=== PATIENT | female | born 1980 | race Caucasian/White ===

== ENCOUNTER 2018-02-09 19:53 | Inpatient (IN) | payer OTHER ==
[~2018-02-09] VITALS: Ht 165.1 cm; Wt 65.0 kg
[2018-02-09] MEDS ORDERED: morphine 4 MG/ML inj SYRINge IV ONE (20:40)
[2018-02-09] MEDS ORDERED: normal saline 1000ML IV soln IVB ONE (20:40)
[2018-02-09] MEDS ORDERED: ondansetron/PF 4mg/2ml inj IV ONE (20:40)
[2018-02-09 21:02] LABS: BASOPHILS % (AUTO) 0.3 % (0-1); EOSINOPHILS # (AUTO) 0.1 X10'3 (0-0.9); EOSINOPHILS % (AUTO) 0.9 % (0-6); HEMATOCRIT 45.6 % (35.0-45.0); HEMOGLOBIN 15.5 g/dl (12.0-16.0); LYMPHOCYTES # (AUTO) 0.9 X10'3 (1.1-4.8); LYMPHOCYTES % (AUTO) 5.9 % (21-51); MEAN CORPUSCULAR HGB CONC 33.9 % (33.0-36.5); MEAN CORPUSCULAR VOLUME 88.6 FL (78-98); MEAN PLATELET VOLUME 7.4 FL (7.4-10.4); MONOCYTES # (AUTO) 0.2 X10'3 (0-0.9); MONOCYTES % (AUTO) 1.1 % (2-12); NEUTROPHILS # (AUTO) 14.6 X10'3 (1.8-7.7); NEUTROPHILS % (AUTO) 91.8 % (42-75); PLATELET COUNT 303 X10'3 (140-440); RED BLOOD COUNT 5.15 X10'6 (4.20-5.60); RED CELL DISTRIBUTION WIDTH 13.2 % (11.5-14.5); WHITE BLOOD COUNT 15.9 X10'3 (4.5-11.0)
[2018-02-09 21:16] LABS: ALANINE AMINOTRANSFERASE 24 U/L (12-78); ALBUMIN 4.3 G/DL (3.4-5.0); ALKALINE PHOSPHATASE 64 IU/L (46-116); ANION GAP 7 (8-16); ASPARTATE AMINO TRANSFERASE 14 U/L (10-37); BILIRUBIN,TOTAL 0.6 MG/DL (0.1-1.0); BLOOD UREA NITROGEN 16 MG/DL (7-18); BUN/CREATININE RATIO 18.4 (6.6-38.0); CALCIUM 9.8 MG/DL (8.5-10.1); CHLORIDE 102 MMOL/L (99-107); CREATININE 0.87 MG/DL (0.40-0.90); GLUCOSE 99 MG/DL (70-104); LIPASE 145 U/L (73-393); SODIUM 138 MMOL/L (135-145); TOTAL CARBON DIOXIDE 28.8 MMOL/L (24-32); TOTAL PROTEIN 8.4 G/DL (6.4-8.2); eGFR 73 ML/MIN
[2018-02-09] MEDS ORDERED: iohexol 300mg/ml 100ml inj. ONE (21:33)
[2018-02-09 22:01] LABS: URINE HCG NEGATIVE (NEG)
[2018-02-09 23:33] LABS: CLARITY,URINE CLEAR (Clear); COLOR,URINE YELLOW (Yellow); GLUCOSE, URINE NEGATIVE (Neg); KETONES,URINE 15 mg/dl (Neg); LEUKOCYTE ESTERASE ,URINE NEGATIVE (Neg); NITRITES, URINE NEGATIVE (Neg); OCCULT BLOOD,URINE NEGATIVE (Neg); PROTEIN,URINE NEGATIVE (Neg); UROBILINOGEN,URINE 0.2 E.U/dL (0.2-1.0)
[2018-02-09 23:35] LABS: UA COLLECTION TYPE CLN CATCH MIDSTREAM
[2018-02-10] VITALS (13 sets, daily range): BP systolic 83–120; BP diastolic 43–78
[2018-02-10] MEDS ORDERED: normal saline 1000ml 1,000 ML IV ONE
[2018-02-10] MEDS ORDERED: piperacillin/tazo 3.375gm/50ml 50 ML IV STA (00:16)
[2018-02-10] MEDS ORDERED: SERT50TA10 PO (00:30)
[2018-02-10] MEDS ORDERED: normal saline 1000ml 1,000 ML IV SCH (00:32)
[2018-02-10] MEDS ORDERED: HYDROmorphone inj. 0.5 MG/0.5 ML DISP.SYRIN IV PRN ×2 (00:35)
[2018-02-10] MEDS ORDERED: ondansetron/PF 4mg/2ml inj IV PRN ×2 (00:35→01:55)
[2018-02-10] MEDS ORDERED: acetaminophen 325mg tablet PO PRN (00:35)
[2018-02-10] MEDS ORDERED: HYDROmorphone 1 mg/ml syringe IV PRN ×2 (00:52)
[2018-02-10] MEDS ORDERED: BUPIVAcaine/PF 2.5mg/ml (0.25%) 10ml vial ONE (00:52)
[2018-02-10] MEDS ORDERED: fentaNYL /PF 50mcg/ml 5ml ampule ONE (01:02)
[2018-02-10] MEDS ORDERED: midazolam 2 mg/2 ml injection ONE (01:02)
[2018-02-10] MEDS ORDERED: propofol inj 20 ML IV ONE (01:04)
[2018-02-10] MEDS ORDERED: LIDOcaine 2% (20mg/ml) 5ml vial ONE (01:04)
[2018-02-10] MEDS ORDERED: rocuronium 10mg/ml inj IV ONE (01:05)
[2018-02-10] MEDS ORDERED: dexamethasone sod phosphate 4mg/ml inj. ONE (01:06)
[2018-02-10] MEDS ORDERED: ondansetron/PF 4mg/2ml inj ONE ×2 (01:12)
[2018-02-10] MEDS ORDERED: sevoflurane 250ml liquid IH ONE (01:12)
[2018-02-10] MEDS ORDERED: ringers solution, lacted 1,000 ML IV SCH (01:52)
[2018-02-10] MEDS ORDERED: meperidine/PF 25mg/ml syringe IV PRN ×2 (01:55)
[2018-02-10] MEDS ORDERED: morphine 4 MG/ML inj SYRINge IV PRN ×3 (01:55→11:50)
[2018-02-10] MEDS ORDERED: proCHLORperazine 10 MG/2 ml inj IV PRN ×4 (01:55→11:57)
[2018-02-10] MEDS ORDERED: neostigmine methylsulfate 1 MG/ML 10ml vial ONE (02:04)
[2018-02-10] MEDS ORDERED: glycopyrrolate 0.2mg/ml inj ONE (02:04)
[2018-02-10] MEDS: meperidine/PF 25mg/ml syringe IV PRN ×3 (02:43→03:35)
[2018-02-10] MEDS ORDERED: piperacillin/tazo 3.375gm/50ml 50 ML IV SCH (08:00)
[2018-02-10] MEDS ORDERED: HYDROcodone/acetaminophen 5mg/325mg tablet PO PRN (08:25)
[2018-02-10 09:07] LABS: BASOPHILS # (AUTO) 0.1 X10'3 (0-0.2); BASOPHILS % (AUTO) 0.6 % (0-1); EOSINOPHILS % (AUTO) 0.4 % (0-6); HEMATOCRIT 44.9 % (35.0-45.0); HEMOGLOBIN 15.1 g/dl (12.0-16.0); LYMPHOCYTES # (AUTO) 0.7 X10'3 (1.1-4.8); LYMPHOCYTES % (AUTO) 5.8 % (21-51); MEAN CORPUSCULAR HGB CONC 33.5 % (33.0-36.5); MEAN CORPUSCULAR VOLUME 89.4 FL (78-98); MEAN PLATELET VOLUME 7.2 FL (7.4-10.4); MONOCYTES # (AUTO) 0.1 X10'3 (0-0.9); NEUTROPHILS % (AUTO) 92.2 % (42-75); PLATELET COUNT 288 X10'3 (140-440); RED BLOOD COUNT 5.02 X10'6 (4.20-5.60); RED CELL DISTRIBUTION WIDTH 13.2 % (11.5-14.5); WHITE BLOOD COUNT 11.9 X10'3 (4.5-11.0)
[2018-02-10 09:20] LABS: ALANINE AMINOTRANSFERASE 19 U/L (12-78); ALBUMIN 3.6 G/DL (3.4-5.0); ALBUMIN/GLOBULIN RATIO 0.9 (1.1-1.5); ALKALINE PHOSPHATASE 64 IU/L (46-116); ANION GAP 7 (8-16); ASPARTATE AMINO TRANSFERASE 15 U/L (10-37); BILIRUBIN,TOTAL 0.6 MG/DL (0.1-1.0); BLOOD UREA NITROGEN 7 MG/DL (7-18); BUN/CREATININE RATIO 9.9 (6.6-38.0); CALCIUM 8.5 MG/DL (8.5-10.1); CHLORIDE 104 MMOL/L (99-107); CREATININE 0.71 MG/DL (0.40-0.90); GLUCOSE 121 MG/DL (70-104); POTASSIUM 4.5 MMOL/L (3.5-5.1); SODIUM 139 MMOL/L (135-145); TOTAL CARBON DIOXIDE 27.8 MMOL/L (24-32); TOTAL PROTEIN 7.5 G/DL (6.4-8.2); eGFR > 90 ML/MIN
[2018-02-10] MEDS: HYDROcodone/acetaminophen 10/325mg tab PO PRN ×2 (12:13→16:40)
[2018-02-10] MEDS ORDERED: gentamicin inj 325 MG in normal saline 100ml IV soln 91.875 ML IV ONE (15:10)
[2018-02-10] MEDS ORDERED: HYDR-3972 PO (16:23)
[2018-02-10] MEDS ORDERED: sertraline 50mg tablet PO SCH (21:00)
== END 2018-02-10 18:00 | disposition home or self-care (01) | DRG 340 ==
LOC: ER 19:54 → ED HOLD 02-10 00:32 → ORTHO 4S 02-10 03:45
PROVIDERS: ADMIT Internal Medicine; ATTEND Family Medicine
PROC: BW211ZZ Computerized Tomography (CT Scan) of Abdomen and Pelvis using Low Osmolar Contrast (ICD-10-PCS; 2018-02-09)
PROC: 0DTJ4ZZ Resection of Appendix, Percutaneous Endoscopic Approach (ICD-10-PCS; principal; 2018-02-10 01:12)
DX: K35.3 Acute appendicitis with localized peritonitis (principal); Z98.82 Breast implant status
CPT/HCPCS: 96361; 96374; 96375; 99285; Z7506; 36415; 74177; 76856; 80053; 81003; 81025; 83690; 85025; 87070; A7000; J0780; J1100; J1170; J1580; J2001; J2175; J2250; J2270; J2405; J2543; J2704; J2710; J3010; J3490; J7030; J7120; Q9967

== ENCOUNTER 2019-10-12 09:45 | Outpatient (CLI) | payer OTHER ==
[~2019-10-12 09:45] MED LIST: HYDR-3972 PO; SERT50TA10 PO
== END 2019-10-12 23:59 | disposition home or self-care (01) ==
LOC: RAD 09:45
PROVIDERS: ATTEND Family Medicine
DX: R10.11 Right upper quadrant pain (principal)
CPT/HCPCS: 76700

== ENCOUNTER 2020-02-01 16:42 | Emergency (ER) | payer BC, OTHER ==
[~2020-02-01] VITALS: Ht 162.6 cm; Wt 61.8 kg
[2020-02-01 16:44] VITALS: BP 128/80
--- NOTE | 2020-02-01 17:05 | NUR ---
Patient seen and assessed by provider.
== END 2020-02-01 17:11 | disposition home or self-care (01) ==
LOC: ER 16:43
DX: R50.9 Fever, unspecified (principal); R51 Headache; J02.9 Acute pharyngitis, unspecified; Z20.828 Contact with and (suspected) exposure to other viral communicable diseases; Z98.890 Other specified postprocedural states; Z79.899 Other long term (current) drug therapy
CPT/HCPCS: 36415; 99281; 99283

== ENCOUNTER → 2021-01-10 | Emergency (ER) | payer BC ==
[~2021-01-10] VITALS: Ht 162.6 cm; Wt 66.4 kg
[~2021-01-10] MED LIST changes: +SERT-433 PO; -SERT50TA10 PO; +ketorolac trometh. 30mg/ml inj. IM ONE
[2021-01-10 11:08] VITALS: BP 132/96
== END | disposition home or self-care (01) ==
LOC: ER 11:03 → EEVIPCON 11:03
DX: R10.2 Pelvic and perineal pain (principal); Z79.899 Other long term (current) drug therapy; Z98.890 Other specified postprocedural states
CPT/HCPCS: 72170; 96372; 99283; J1885

== ENCOUNTER 2021-07-07 11:54 | Outpatient (CLI) | payer BC ==
[~2021-07-07 11:54] MED LIST changes: -ketorolac trometh. 30mg/ml inj. IM ONE
[2021-07-07 12:39] LABS: BASOPHILS # (AUTO) 0.1 X10'3 (0-0.2); BASOPHILS % (AUTO) 0.8 % (0-1); EOSINOPHILS # (AUTO) 0.3 X10'3 (0-0.9); EOSINOPHILS % (AUTO) 3.9 % (0-6); HEMATOCRIT 43.8 % (35.0-45.0); HEMOGLOBIN 14.9 g/dl (12.0-16.0); LYMPHOCYTES # (AUTO) 2.1 X10'3 (1.1-4.8); LYMPHOCYTES % (AUTO) 24.6 % (21-51); MEAN CORPUSCULAR HEMOGLOBIN 30.3 PG (27.0-31.0); MEAN CORPUSCULAR VOLUME 89.3 FL (78-98); MEAN PLATELET VOLUME 7.5 FL (7.4-10.4); MONOCYTES # (AUTO) 0.4 X10'3 (0-0.9); MONOCYTES % (AUTO) 4.8 % (2-12); NEUTROPHILS # (AUTO) 5.6 X10'3 (1.8-7.7); NEUTROPHILS % (AUTO) 65.9 % (42-75); PLATELET COUNT 374 X10'3 (140-440); WHITE BLOOD COUNT 8.4 X10'3 (4.5-11.0)
[2021-07-07 12:48] LABS: D-DIMER 0.39 MG/L FEU (0-0.50)
[2021-07-07 13:00] LABS: ALANINE AMINOTRANSFERASE 35 U/L (12-78); ALKALINE PHOSPHATASE 63 IU/L (46-116); ANION GAP 10 (8-16); ASPARTATE AMINO TRANSFERASE 17 U/L (10-37); BILIRUBIN,TOTAL 0.3 MG/DL (0.1-1.0); BLOOD UREA NITROGEN 15 MG/DL (7-18); CALCIUM 9.1 MG/DL (8.5-10.1); CHLORIDE 104 MMOL/L (99-107); CREATININE 0.79 MG/DL (0.40-0.90); GLUCOSE 98 MG/DL (70-104); POTASSIUM 3.9 MMOL/L (3.5-5.1); SODIUM 138 MMOL/L (135-145); TOTAL CARBON DIOXIDE 24.5 MMOL/L (24-32); TOTAL PROTEIN 7.9 G/DL (6.4-8.2); eGFR 80 ML/MIN
== END 2021-07-07 23:59 | disposition home or self-care (01) ==
LOC: LAB 11:54
PROVIDERS: ATTEND Physician Assistant
DX: R06.00 Dyspnea, unspecified (principal); M24.432 Recurrent dislocation, left wrist; M25.551 Pain in right hip; R30.0 Dysuria; R39.9 Unspecified symptoms and signs involving the genitourinary system; R00.0 Tachycardia, unspecified
CPT/HCPCS: 36415; 71046; 80053; 84439; 84443; 85025; 85379

== ENCOUNTER 2021-08-29 16:09 | Outpatient (CLI) | payer BC ==
[2021-08-29 16:51] LABS: RHEUM FACTOR QUAL REFLEX TITER NEGATIVE (Neg)
[2021-08-29 16:55] LABS: C-REACTIVE PROTEIN < 0.05 MG/DL (0.0-0.5)
== END 2021-08-29 23:59 | disposition home or self-care (01) ==
LOC: LAB 16:09
DX: R06.02 Shortness of breath (principal); M25.50 Pain in unspecified joint
CPT/HCPCS: 36415; 84550; 85651; 86038; 86140; 86430

== ENCOUNTER 2023-12-03 16:08 | Emergency (ER) | payer BC, MEDICAID ==
[~2023-12-03] VITALS: Ht 162.6 cm; Wt 60.5 kg
[2023-12-03 16:09] VITALS: BP 118/72; PULSE 94; TEMP 99.1; O2SAT 100
[2023-12-03] MEDS: TETanus/Pertussis (Acell)/Diphther VAC/PF (Tdap-Adult) 0.5ml syringe IMVAC ONE (16:51)
[2023-12-03] MEDS ORDERED: ketorolac trometh. 30mg/ml inj. IM ONE (17:05)
[2023-12-03 17:09] VITALS: RESP 14
[2023-12-03] MEDS: LIDOcaine 1% W/epiNEPHrine 1:100,000 20ml vial SQ ONE (17:09)
[2023-12-03] MEDS: ketorolac tromethamine 15mg/ml inj. IM ONE (17:09)
[2023-12-03] MEDS ORDERED: HYDR-3965 PO (17:30)
[2023-12-03] MEDS ORDERED: CEPH-585 PO (17:30)
== END 2023-12-03 18:07 | disposition home or self-care (01) ==
LOC: ER 16:09
DX: S61.512A Laceration without foreign body of left wrist, initial encounter (principal); Z79.899 Other long term (current) drug therapy; W26.8XXA Contact with other sharp object(s), not elsewhere classified, initial encounter; Y93.89 Activity, other specified; Y92.89 Other specified places as the place of occurrence of the external cause; Y99.8 Other external cause status
CPT/HCPCS: 12001; 90471; 90715; 96372; 99284; J1885; J3490; 29125